=== PATIENT | male | born 1995 | race Caucasian/White ===

== ENCOUNTER 2018-06-02 17:23 | Emergency (ER) | payer OTHER ==
[~2018-06-02] VITALS: Ht 182.9 cm; Wt 87.1 kg
[2018-06-02 17:24] VITALS: BP 123/56
[2018-06-02] MEDS ORDERED: TOBRAMYCIN-DEXAM5 ML TOP (18:10)
== END 2018-06-02 18:33 | disposition home or self-care (01) ==
LOC: ER 17:23
DX: T15.92XA Foreign body on external eye, part unspecified, left eye, initial encounter (principal); W45.8XXA Other foreign body or object entering through skin, initial encounter